=== PATIENT | female | born 1940 | race Caucasian/White ===

== ENCOUNTER 2019-11-11 15:17 | Emergency (ER) | payer MEDICARE ==
--- NOTE | 2019-11-11 17:29 | ED ---
Lower Extremity - HPI Summary HPI Summary: Patient complains of right knee pain 2 weeks. Patient recently started 2 weeks ago with PT, states it's causing her any pain. Patient stopped PT after 3 days, but pain is remaining persistent. Pain located to interior knee just distal to the kneecap. Denies trauma, fever, cough, sore throat, CV, SOB, N/3/ V abdominal pain, change in urine, change in BM.. Medical history is none. - History of Current Complaint Chief Complaint: EDExtremityLower Stated Complaint: R KNEE PAIN PER PT Time Seen by Provider: 11/11/19 17:24 Hx Obtained From: Patient, Family/Manufacturing [employer] Mechanism Of Injury: Other Onset of Pain: Immediate, Days Onset/Duration: Still Present Severity Initially: Moderate Severity Currently: Moderate Pain Intensity: 8 Pain Scale Used: 0-10 Numeric Timing: Constant Location: Is Discrete @ Character Of Pain: Aching, Throbbing Associated Signs And Symptoms: Positive: Swelling Aggravating Factor(s): Standing, Ambulation, Movement Alleviating Factor(s): Rest, Elevation Able to Bear Weight: Yes - Allergies/Home Medications Allergies/Adverse Reactions: Allergies Allergy/AdvReac Type Severity Reaction Status Date / Time No Known Allergies Allergy Verified 11/11/19 15:21 PMH/Surg Hx/FS Hx/Imm Hx Endocrine/Hematology History: Denies: Hx Anticoagulant Therapy Cardiovascular History: Denies: Hx Pacemaker/ICD History: Denies: Hx Dialysis Sensory History: Denies: Hx Eye Prosthesis Opthamlomology History: Denies: Hx Legally Blind EENT History: Denies: Hx Deafness Infectious Disease History: No Infectious Disease History: Denies: Traveled Outside the [place] in Last 30 Days - Family History Known Family History: Negative: Non-Contributory - Social History Alcohol Use: Occasionally Hx Substance Use: No Hx Tobacco Use: No Review of Systems Constitutional: Negative Eyes: Negative ENT: Negative Cardiovascular: Negative Respiratory: Negative Gastrointestinal: Negative Genitourinary: Negative Musculoskeletal: Other Skin: Negative Neurological/Mental Status: Negative Psychological: Normal All Other Systems Reviewed And Are Negative: Yes Physical Exam - Summary Physical Exam Summary: Mild swelling to right knee. No erythema, ecchymosis, deformity noted. calf soft Nontender. Full range of motion of right knee. PMS intact distally. Triage Information Reviewed: Yes Vital Signs On Initial Exam: Initial Vitals Temp Pulse Resp BP Pulse Ox 98.2 F 84 16 000/00 97 11/11/19 15:21 11/11/19 15:21 11/11/19 15:21 11/11/19 15:21 11/11/19 15:21 Vital Signs Reviewed: Yes Appearance: Positive: Well-Appearing Skin: Positive: Warm Head/Face: Positive: Normal Head/Face Inspection Eyes: Positive: Normal Neck: Positive: Supple Respiratory/Lung Sounds: Positive: Clear to Auscultation Cardiovascular: Positive: Normal Abdomen Description: Positive: Nontender Musculoskeletal: Positive: Normal Neurological: Positive: Normal Psychiatric: Positive: Normal AVPU Assessment: Alert - Brittanie Coma Scale Best Eye Response: 4 - Spontaneous Best Motor Response: 6 - Obeys Commands Best Verbal Response: 5 - Oriented Coma Scale Total: 15 Procedures - Sedation Patient Received Moderate/Deep Sedation with Procedure: No Diagnostics - Vital Signs Vital Signs Temp Pulse Resp BP Pulse Ox 11/11/19 17:24 99.0 F 70 18 170/90 96 11/11/19 15:21 98.2 F 84 16 000/00 97 - Laboratory Lab Statement: Any lab studies that have been ordered have been reviewed, and results considered in the medical decision making process. Lower Extremity Course/Dx - Course Course Of Treatment: Patient complains of right knee pain 2 weeks. Patient recently started 2 weeks ago with PT, states it's causing her any pain. Patient stopped PT after 3 days, but pain is remaining persistent. Pain located to interior knee just distal to the kneecap. Denies trauma, fever, cough, sore throat, CV, SOB, N/3/V abdominal pain, change in urine, change in BM.. Medical history is none. Vital signs within normal limits. X-ray negative. Follow-up with PT. - Diagnoses Provider Diagnoses: Knee pain, right Discharge ED - Sign-Out/Discharge Documenting (check all that apply): Patient Departure - Discharge Plan Condition: Stable Disposition: HOME Patient Education Materials: Knee Pain (ED) Referrals: Grace Alvarado MD [Primary Care Provider] - Chika Robles MD [Medical Doctor] - Additional Instructions: Ice knee for 15 minutes at a time. Alternate ibuprofen 600 mg with Tylenol 650 mg every 3 hours if needed for any pain. Elevate leg when you can. If symptoms do not improve in a week follow-up with orthopedics Dr. Robles for further evaluation. - Billing Disposition and Condition Condition: STABLE Disposition: Home
[2019-11-11 19:06] VITALS: BP 000/00
== END 2019-11-11 19:05 | disposition home or self-care (01) ==
LOC: ED 15:17
DX: M25.561 Pain in right knee (principal); M25.461 Effusion, right knee
CPT/HCPCS: 99281

== ENCOUNTER 2024-09-21 07:41 | Inpatient (IN) ==
[2024-09-21] MEDS: Ondansetron 4 mg VIAL 2 MG/ML 2 ml VIAL IV ONE (08:20)
[2024-09-21] MEDS: Morphine 4 MG/ML VIAL (1 ml) IV ONE ×2 (08:20→11:13)
[2024-09-21] MEDS: Lactated Ringers 1000 ml BAG 1,000 ML IV ONE (08:22)
[2024-09-21 08:35] LABS: ABS Eosinophils 0.2 10^3/uL (0.0-0.5); ABS Lymphocytes 1.5 10^3/uL (1.0-4.8); ABS Monocytes 0.9 10^3/uL (0.0-0.9); ABS Neutrophils 5.3 10^3/uL (1.5-7.6); ABS Nucleated RBC 0.01 10^3/ul; Eosinophil % 2.6 %; Hematocrit 41.7 % (35-45); Hemoglobin 14.1 g/dL (11.5-14.3); Lymphocyte % 19.3 %; Mean Corpuscular Hemoglobin 31.8 pg (27-33); Mean Corpuscular Hgb Conc 33.8 g/dL (31-36); Mean Platelet Volume 8.7 fL (7.5-11.2); Nucleated Red Blood Cells % 0.1 %/100WBC (0.0-0.8); Platelet Count 275 10^3/uL (150-450); Red Blood Count 4.44 10^6/uL (3.63-4.92)
[2024-09-21 09:22] LABS: Urine Appearance Clear; Urine Bilirubin Negative (Negative); Urine Blood 3+ (Negative); Urine Color Light-Yellow; Urine Glucose Negative (Negative); Urine Ketones Negative (Negative); Urine Nitrite Negative (Negative); Urine Protein Trace (Negative); Urine Specific Gravity 1.023 (1.002-1.030); Urine Urobilinogen Negative (Negative); Urine pH 5.5 (5.0-8.0)
[2024-09-21 09:24] LABS: Urine Bacteria Absent /HPF (Absent); Urine Red Blood Cell 3+(>10/hpf) /HPF (0-Trace); Urine Squamous Epithelial Cell Present /HPF (Absent); Urine White Blood Cell 2+(11-20/hpf) /HPF (0-Trace)
[2024-09-21 09:27] LABS: Albumin 4.2 g/dL (3.5-5.7); Albumin/Globulin Ratio 1.5 (1-3); C Reactive Protein 62.31 mg/L (<8.01); Calcium 10.6 mg/dL (8.6-10.3); Creatinine, Serum 1.3 mg/dL (0.51-0.95); Globulin 2.8 g/dL (2-4); Potassium 4.5 mmol/L (3.5-5.0); Total Bilirubin 0.5 mg/dL (0.2-1.0); eGFR CKD-EPI 40.8 (>60)
[2024-09-21] MEDS ORDERED: Dextrose 50% Syringe 50 ml 25 GM/50 ML SYRINGE IV PUSH PRN (16:48)
[2024-09-21 17:16] LABS: ABS Eosinophils 0.1 10^3/uL (0.0-0.5); ABS Lymphocytes 1.5 10^3/uL (1.0-4.8); ABS Monocytes 0.7 10^3/uL (0.0-0.9); ABS Neutrophils 4.8 10^3/uL (1.5-7.6); Eosinophil % 1.7 %; Hematocrit 36.6 % (35-45); Hemoglobin 12.1 g/dL (11.5-14.3); Lymphocyte % 20.9 %; Mean Corpuscular Hemoglobin 30.9 pg (27-33); Mean Corpuscular Hgb Conc 33.1 g/dL (31-36); Mean Corpuscular Volume 93.3 fL (80-97); Mean Platelet Volume 8.4 fL (7.5-11.2); Nucleated Red Blood Cells % 0.1 %/100WBC (0.0-0.8); Platelet Count 230 10^3/uL (150-450); Red Blood Count 3.93 10^6/uL (3.63-4.92); Red Cell Distribution Width 13.8 % (12-17); White Blood Count 7.2 10^3/uL (3.8-11.8)
[2024-09-21 17:27] LABS: Activated Partial Thrombo Time 30.5 seconds (26.0-38.0); INR 1.1 (0.85-1.14)
[2024-09-21 17:48] LABS: Creatinine, Serum 1.03 mg/dL (0.51-0.95)
[2024-09-21] MEDS: Heparin 5000 UNITS/ML 1 mL VIAL SUBCUT SCH (21:10)
[2024-09-22] MEDS: Morphine 2 MG/ML SYRINGE IV PRN (04:08)
[2024-09-22 06:58] LABS: ABS Basophils 0.1 10^3/uL (0.0-0.1); ABS Eosinophils 0.1 10^3/uL (0.0-0.5); ABS Lymphocytes 1.4 10^3/uL (1.0-4.8); ABS Monocytes 0.9 10^3/uL (0.0-0.9); ABS Neutrophils 5.5 10^3/uL (1.5-7.6); Eosinophil % 1.2 %; Hematocrit 37.6 % (35-45); Hemoglobin 12.8 g/dL (11.5-14.3); Lymphocyte % 18.1 %; Mean Corpuscular Hemoglobin 31.6 pg (27-33); Mean Corpuscular Volume 92.9 fL (80-97); Mean Platelet Volume 8.6 fL (7.5-11.2); Platelet Count 243 10^3/uL (150-450); Red Blood Count 4.04 10^6/uL (3.63-4.92); Red Cell Distribution Width 14.1 % (12-17); White Blood Count 7.9 10^3/uL (3.8-11.8)
[2024-09-22 07:41] LABS: Creatinine, Serum 1.04 mg/dL (0.51-0.95); Potassium 4.7 mmol/L (3.5-5.0); eGFR CKD-EPI 53.3 (>60)
[2024-09-22] MEDS: HYDROmorphone 1 MG/1 ML SYRINGE IV SLOW PU PRN (08:07)
[2024-09-22] MEDS ORDERED: oxyCODONE/Acetamin 10/325(NF) TAB PO PRN ×2 (09:31→14:17)
[2024-09-22] MEDS: Morphine ER 15 mg TAB ** extended release PO SCH (11:26)
[2024-09-22] MEDS: fentaNYL 100 mcg/2 ml 50 MCG/ML VIAL ONE (13:20)
[2024-09-22] MEDS: oxyCODONE/Acetamin 5/325 mg TAB PO PRN (13:41)
[2024-09-22] MEDS ORDERED: Morphine ER 15 mg TAB ** extended release PO SCH ×2 (15:00→22:00)
[2024-09-22] MEDS ORDERED: Morphine ER 30 mg TAB ** extended release PO SCH ×2 (15:00→20:00)
[2024-09-22] MEDS: Iodixanol 320 (CONTRAST) 100 ML SDV IV ONE ×2 (17:14→18:16)
[2024-09-22] MEDS: Lactated Ringers 1000 ml BAG 1,000 ML IV ONE (21:38)
[2024-09-22] MEDS: oxyCODONE SR 15 mg TAB PO SCH (22:37)
[2024-09-23] MEDS: Lactated Ringers 1000 ml BAG 1,000 ML IV SCH ×2 (00:49→09:03)
[2024-09-23] MEDS ORDERED: Morphine 4 MG/ML VIAL (1 ml) IV PRN (09:16)
[2024-09-23] MEDS ORDERED: oxyCODONE/Acetamin 5/325 mg TAB PO PRN (11:57)
[2024-09-23] MEDS: Enoxaparin 40 MG/0.4 ML SYR SUBCUT SCH (22:19)
[2024-09-24 06:06] LABS: ABS Lymphocytes 1.2 10^3/uL (1.0-4.8); ABS Monocytes 1.2 10^3/uL (0.0-0.9); ABS Neutrophils 9.5 10^3/uL (1.5-7.6); ABS Nucleated RBC 0.01 10^3/ul; Eosinophil % 0.2 %; Hematocrit 21.6 % (35-45); Hemoglobin 7.4 g/dL (11.5-14.3); Mean Corpuscular Hemoglobin 31.7 pg (27-33); Mean Corpuscular Volume 93.3 fL (80-97); Mean Platelet Volume 9.3 fL (7.5-11.2); Nucleated Red Blood Cells % 0.1 %/100WBC (0.0-0.8); Platelet Count 186 10^3/uL (150-450); Red Blood Count 2.32 10^6/uL (3.63-4.92); Red Cell Distribution Width 13.7 % (12-17); White Blood Count 11.9 10^3/uL (3.8-11.8)
[2024-09-24 06:29] LABS: Albumin/Globulin Ratio 1.5 (1-3); Calcium 8.9 mg/dL (8.6-10.3); Creatinine, Serum 2.02 mg/dL (0.51-0.95); Magnesium 1.8 mg/dL (1.9-2.7); Potassium 4.6 mmol/L (3.5-5.0); Total Bilirubin 0.5 mg/dL (0.2-1.0)
[2024-09-24] MEDS: Lactated Ringers 1000 ml BAG 1,000 ML IV ONE (07:29)
[2024-09-24 09:17] LABS: Urine Appearance Clear; Urine Bilirubin Negative (Negative); Urine Blood Negative (Negative); Urine Color Yellow; Urine Glucose Negative (Negative); Urine Ketones Negative (Negative); Urine Nitrite Negative (Negative); Urine Protein 1+ (>=30 mg/dL) (Negative); Urine Specific Gravity 1.043 (1.002-1.030); Urine Urobilinogen 1+ (Negative); Urine pH 5.5 (5.0-8.0)
[2024-09-24 09:38] LABS: Urine Bacteria Absent /HPF (Absent); Urine Red Blood Cell 2+(6-10/hpf) /HPF (0-Trace); Urine Squamous Epithelial Cell Present /HPF (Absent); Urine White Blood Cell Trace(0-5/hpf) /HPF (0-Trace)
[2024-09-24] MEDS ORDERED: Flumazenil 0.5 mg/5 ml 0.1 MG/ML 5 ml VIAL IV PRN (11:09)
[2024-09-24] MEDS ORDERED: Naloxone 0.4 mg VIAL 0.4 mg/ml 1 ml VIAL IV PUSH PRN (11:09)
[2024-09-24] MEDS: fentaNYL 100 mcg/2 ml 50 MCG/ML VIAL IV SLOW PU ONE (11:20)
[2024-09-24] MEDS: Midazolam 10 mg/10 ml VIAL 1 mg/ml 10 ml VIAL (10 mg) IV SLOW PU ONE (11:20)
[2024-09-24] MEDS ORDERED: Midazolam 5 mg/5 ml VIAL 1 mg/ml 5 ml VIAL (5 mg) ONE (11:53)
[2024-09-24] MEDS ORDERED: fentaNYL 100 mcg/2 ml 50 MCG/ML VIAL ONE (11:53)
[2024-09-24] MEDS ORDERED: Lidocaine 1% VIAL 10 MG/ML 30 ML VIAL ONE (11:53)
[2024-09-24] MEDS ORDERED: Iodixanol 320 (CONTRAST) 100 ML SDV ONE (11:53)
[2024-09-24] MEDS ORDERED: Heparin 2 UNITS/ML 1000 mls 2,000 ML IV ONE (11:53)
[2024-09-24] MEDS: Ondansetron 4 mg VIAL 2 MG/ML 2 ml VIAL IV ONE (14:09)
[2024-09-24] MEDS: Morphine 2 MG/ML SYRINGE IV PRN (15:50)
[2024-09-24 16:38] LABS: Hematocrit 22.2 % (35-45); Hemoglobin 7.5 g/dL (11.5-14.3)
[2024-09-25 00:32] LABS: Hematocrit 23.8 % (35-45)
[2024-09-25 06:43] LABS: ABS Eosinophils 0.2 10^3/uL (0.0-0.5); ABS Lymphocytes 1.1 10^3/uL (1.0-4.8); ABS Monocytes 1.2 10^3/uL (0.0-0.9); ABS Neutrophils 9.9 10^3/uL (1.5-7.6); ABS Nucleated RBC 0.01 10^3/ul; Eosinophil % 1.5 %; Hematocrit 25.3 % (35-45); Hemoglobin 8.7 g/dL (11.5-14.3); Mean Corpuscular Hemoglobin 31.6 pg (27-33); Mean Corpuscular Hgb Conc 34.3 g/dL (31-36); Mean Corpuscular Volume 92.2 fL (80-97); Mean Platelet Volume 9.1 fL (7.5-11.2); Nucleated Red Blood Cells % 0.1 %/100WBC (0.0-0.8); Platelet Count 177 10^3/uL (150-450); Red Blood Count 2.74 10^6/uL (3.63-4.92); Red Cell Distribution Width 14.5 % (12-17); White Blood Count 12.5 10^3/uL (3.8-11.8)
[2024-09-25 07:04] LABS: Albumin 2.9 g/dL (3.5-5.7); Albumin/Globulin Ratio 1.5 (1-3); Calcium 8.8 mg/dL (8.6-10.3); Creatinine, Serum 1.24 mg/dL (0.51-0.95); Magnesium 1.8 mg/dL (1.9-2.7); Phosphorus 2.9 mg/dL (2.5-5.0); Potassium 4.3 mmol/L (3.5-5.0); Total Bilirubin 1.6 mg/dL (0.2-1.0); Total Protein 4.9 g/dL (6.4-8.9); eGFR CKD-EPI 43.2 (>60)
[2024-09-25 07:37] LABS: Direct Bilirubin 0.5 mg/dL (0.03-0.18); Indirect Bilirubin 1.1 mg/dL (0.3-1.0)
[2024-09-25] MEDS: HYDROmorphone 0.5 MG/0.5 ML SYRINGE IV SLOW PU PRN (07:58)
[2024-09-25] MEDS ORDERED: Naloxone Nasal Spray 4 MG/0.1 ML NASAL.SPR INTRANASAL PRN (09:45)
[2024-09-25] MEDS: Magnesium Sulfate 2 gm BAG 2 GM/50 ML BAG IVPB ONE (10:20)
[2024-09-25] MEDS ORDERED: Magnesium Hydroxide LIQ 30 ML UDC PO PRN (10:52)
[2024-09-25] MEDS ORDERED: Morphine 2 MG/ML SYRINGE IV PRN (11:55)
[2024-09-25] MEDS: Magnesium Hydroxide LIQ 30 ML UDC PO SCH (12:58)
[2024-09-25] MEDS: Polyethylene Glycol 3350 17 GM PACKET PO SCH (12:58)
[2024-09-25 17:17] LABS: Hematocrit 25.9 % (35-45); Hemoglobin 8.9 g/dL (11.5-14.3)
[2024-09-25] MEDS: Senna TAB 8.6 mg TAB PO SCH (22:00)
[2024-09-26] MEDS: HYDROmorphone 1 MG/1 ML SYRINGE IV SLOW PU PRN (01:07)
[2024-09-26 08:26] LABS: ABS Eosinophils 0.2 10^3/uL (0.0-0.5); ABS Lymphocytes 0.7 10^3/uL (1.0-4.8); ABS Monocytes 1.1 10^3/uL (0.0-0.9); ABS Neutrophils 8.6 10^3/uL (1.5-7.6); ABS Nucleated RBC 0.01 10^3/ul; Eosinophil % 2.3 %; Hematocrit 27.1 % (35-45); Hemoglobin 9.2 g/dL (11.5-14.3); Mean Corpuscular Hemoglobin 31.6 pg (27-33); Mean Corpuscular Hgb Conc 34.2 g/dL (31-36); Mean Corpuscular Volume 92.5 fL (80-97); Nucleated Red Blood Cells % 0.1 %/100WBC (0.0-0.8); Platelet Count 215 10^3/uL (150-450); Red Blood Count 2.93 10^6/uL (3.63-4.92); Red Cell Distribution Width 14.8 % (12-17); White Blood Count 10.7 10^3/uL (3.8-11.8)
[2024-09-26 08:56] LABS: Albumin 2.9 g/dL (3.5-5.7); Albumin/Globulin Ratio 1.3 (1-3); Calcium 9.2 mg/dL (8.6-10.3); Creatinine, Serum 1.14 mg/dL (0.51-0.95); Globulin 2.3 g/dL (2-4); Magnesium 2.5 mg/dL (1.9-2.7); Potassium 5.1 mmol/L (3.5-5.0); Total Bilirubin 0.7 mg/dL (0.2-1.0); Total Protein 5.2 g/dL (6.4-8.9); eGFR CKD-EPI 47.8 (>60)
[2024-09-26] MEDS ORDERED: Senna/Docusate 8.6/50 mg (NF) TAB PO ONE (09:44)
[2024-09-26] MEDS: Docusate LIQ 100 MG/10 ML UDC PO ONE (11:06)
[2024-09-26] MEDS: Senna TAB 8.6 mg TAB PO ONE (11:07)
[2024-09-27 06:23] LABS: ABS Eosinophils 0.3 10^3/uL (0.0-0.5); ABS Lymphocytes 0.8 10^3/uL (1.0-4.8); ABS Monocytes 1.2 10^3/uL (0.0-0.9); ABS Neutrophils 8.8 10^3/uL (1.5-7.6); ABS Nucleated RBC 0.02 10^3/ul; Eosinophil % 2.9 %; Hematocrit 28.6 % (35-45); Hemoglobin 9.7 g/dL (11.5-14.3); Lymphocyte % 7.1 %; Mean Corpuscular Volume 94.3 fL (80-97); Mean Platelet Volume 9.2 fL (7.5-11.2); Nucleated Red Blood Cells % 0.1 %/100WBC (0.0-0.8); Platelet Count 229 10^3/uL (150-450); Red Blood Count 3.03 10^6/uL (3.63-4.92); Red Cell Distribution Width 14.4 % (12-17); White Blood Count 11.1 10^3/uL (3.8-11.8)
[2024-09-27 06:55] LABS: Creatinine, Serum 1.17 mg/dL (0.51-0.95); Magnesium 2.7 mg/dL (1.9-2.7); Phosphorus 3.1 mg/dL (2.5-5.0); eGFR CKD-EPI 46.3 (>60)
[2024-09-27] MEDS: Polyethylene Glycol 3350 17 GM PACKET PO SCH (09:50)
[2024-09-27] MEDS: SMOG Enema (MgOH-NS-Gly-MinO) 330 ML ENEMA PR ONE (11:13)
[2024-09-27] MEDS: Lactulose 30 ml UDC PO SCH (13:49)
[2024-09-27] MEDS ORDERED: Methylnaltrexone 150 MG TAB PO SCH (15:00)
[2024-09-27] MEDS: Methylnaltrexone SQ (NF) 12 MG/0.6 ML VIAL SUBCUT SCH (16:18)
[2024-09-28 06:53] LABS: Hematocrit 28.7 % (35-45); Hemoglobin 9.8 g/dL (11.5-14.3); Mean Corpuscular Hemoglobin 31.9 pg (27-33); Mean Corpuscular Hgb Conc 34.2 g/dL (31-36); Mean Corpuscular Volume 93.1 fL (80-97); Mean Platelet Volume 9.1 fL (7.5-11.2); Platelet Count 289 10^3/uL (150-450); Red Blood Count 3.08 10^6/uL (3.63-4.92); Red Cell Distribution Width 14.5 % (12-17)
[2024-09-28 07:07] LABS: Creatinine, Serum 1.11 mg/dL (0.51-0.95); Potassium 4.5 mmol/L (3.5-5.0)
[2024-09-28 07:08] LABS: Calcium 9.1 mg/dL (8.6-10.3); Magnesium 2.8 mg/dL (1.9-2.7); eGFR CKD-EPI 49.3 (>60)
[2024-09-28] MEDS ORDERED: Lactulose 30 ml UDC PO PRN (07:20)
[2024-09-28] MEDS ORDERED: Dextrose 50% Syringe 50 ml 25 GM/50 ML SYRINGE IV PUSH PRN (07:21)
[2024-09-28] MEDS: Lactulose 30 ml UDC PO SCH (15:15)
[2024-09-28 15:40] LABS: Coagulation F VIII Activity 346 % (55 - 200); Coagulation Factor XI 150 % (55 - 150); von Willebrand Factor Activity 394 % (55 - 200)
[2024-09-28] MEDS: Polyethylene Glycol 3350 17 GM PACKET PO SCH (22:39)
[2024-09-29] MEDS: HYDROmorphone 1 MG/1 ML SYRINGE IV SLOW PU PRN (02:27)
[2024-09-29] MEDS ORDERED: Methylnaltrexone SQ (NF) 12 MG/0.6 ML VIAL SUBCUT SCH (09:00)
[2024-09-29] MEDS: CMC:Methylnaltrexone SQ (NF) 12 MG/0.6 ML VIAL SUBCUT SCH (16:12)
[2024-09-30 06:48] LABS: Hematocrit 27.9 % (35-45); Hemoglobin 9.5 g/dL (11.5-14.3); Mean Corpuscular Hemoglobin 31.9 pg (27-33); Mean Corpuscular Hgb Conc 34.2 g/dL (31-36); Mean Corpuscular Volume 93.3 fL (80-97); Platelet Count 305 10^3/uL (150-450); Red Blood Count 2.98 10^6/uL (3.63-4.92); Red Cell Distribution Width 14.3 % (12-17); White Blood Count 9.9 10^3/uL (3.8-11.8)
[2024-09-30 07:07] LABS: Calcium 8.6 mg/dL (8.6-10.3); Creatinine, Serum 0.95 mg/dL (0.51-0.95); Magnesium 2.3 mg/dL (1.9-2.7); Potassium 4.2 mmol/L (3.5-5.0); eGFR CKD-EPI 59.4 (>60)
[2024-09-30 10:21] VITALS: BP 125/55
[2024-09-30] MEDS: oxyCODONE SR 15 mg TAB PO SCH (10:36)
[2024-09-30] MEDS ORDERED: Methylnaltrexone SQ (NF) 12 MG/0.6 ML VIAL SUBCUT SCH (16:00)
== END 2024-09-30 12:22 | DRG 981 ==
LOC: ED 07:41 → EDHOLD 07:41 → MED 18:10 → SUATTDRO 09-23 09:26
PROVIDERS: ADMIT Internal Medicine; ATTEND Internal Medicine